=== PATIENT | male | born 1970 | race Caucasian/White ===

== ENCOUNTER 2020-12-26 18:12 | Observation (INO) ==
[2020-12-26 18:35] LABS: Basophils # 0.1 10*3/uL (0.0-0.2); Basophils % 0.6 % (0.0-0.8); Eosinophils # 0.5 10*3/uL (0.0-0.87); Eosinophils % 4.6 % (0.00-10.9); Hematocrit 45.4 VOL% (42.0-52.0); Hemoglobin 14.9 GM/DL (14.0-18.0); Immature Granulocytes % 0.3 %; Immature Granulocytes Absolute 0.03 #; Lymphocytes # 1.6 10*3/uL (1.4-4.0); Lymphocytes % 15.2 % (21.2-54.2); Mean Corpuscular HGB Conc 32.8 GM/DL (32-36); Mean Corpuscular Volume 87.8 FL (87-102); Mean Platelet Volume 8.7 FL (9.6-12.0); Monocytes % 10.9 % (1.7-12.7); Neutrophils % 68.4 % (38.7-73.9); Platelet Count 252 T/CUMM (130-400); Red Blood Count 5.17 MC/CUMM (3.8-5.5); White Blood Count 10.8 T/CUMM (4-12)
[2020-12-26 18:49] LABS: PT Patient Result 10.6 SECS (9.8-11.9); Partial Thromboplastin Time 31.6 SECS (23.9-33.8)
[2020-12-26 19:03] LABS: Bilirubin,Total 1.1 MG/DL (0.2-1.0); Calcium 8.9 MG/DL (8.5-10.1); Total Protein 7.3 G/DL (6.4-8.2)
[2020-12-26 19:04] LABS: Osmolality,Calculated 268.1 MOS/KG (273-304)
[2020-12-26] MEDS ORDERED: ALUM/MAG/SIMETH/LIDO VISC 1:1 30 ML BOTTLE PO STA (19:31)
[2020-12-26] MEDS ORDERED: PANTOPRAZOLE 40 MG VIAL IV STA (19:31)
[2020-12-26] MEDS ORDERED: ONDANSETRON 4 MG/2 ML VIAL IV STA (19:31)
[2020-12-26] MEDS ORDERED: MORPHINE 4 MG/1 ML VIAL IV STA (19:31)
[2020-12-26] MEDS ORDERED: NITROGLYCERIN 2% OINT 1 INCH/GM PACK TOP STA (19:31)
[2020-12-26] MEDS ORDERED: ENOXAPARIN 100 MG/ML SYRINGE SUBCUT STA (19:31)
[2020-12-26] MEDS ORDERED: ASPIRIN 325 MG TABLET PO STA (19:31)
[2020-12-26 22:07] VITALS: BP 132/83
[2020-12-26] MEDS: NITROGLYCERIN 2% OINT 1 INCH/GM PACK TOP SCH (23:10)
[2020-12-26] MEDS ORDERED: SODIUM CHLORIDE 0.9% 1,000 ML IV SCH (23:20)
[2020-12-26] MEDS ORDERED: ONDANSETRON 4 MG/2 ML VIAL IV PRN (23:20)
[2020-12-26] MEDS ORDERED: MORPHINE 4 MG/1 ML VIAL IV PRN (23:20)
[2020-12-26] MEDS ORDERED: ENOXAPARIN 40 MG/0.4 ML SYRINGE SUBCUT SCH (23:20)
[2020-12-26] MEDS: DOCUSATE SODIUM 100 MG CAPSULE PO SCH (23:38)
[2020-12-26] MEDS: ACETAMINOPHEN 325 MG TABLET PO PRN (23:52)
[2020-12-27 00:30] LABS: Troponin I < 0.015 NG/ML (0.00-0.045)
[2020-12-27 03:18] LABS: Basophils # 0.1 10*3/uL (0.0-0.2); Basophils % 0.9 % (0.0-0.8); Eosinophils # 0.7 10*3/uL (0.0-0.87); Eosinophils % 7.1 % (0.00-10.9); Hematocrit 42.8 VOL% (42.0-52.0); Immature Granulocytes % 0.4 %; Immature Granulocytes Absolute 0.04 #; Lymphocytes # 1.9 10*3/uL (1.4-4.0); Lymphocytes % 20.1 % (21.2-54.2); Mean Corpuscular HGB Conc 32.7 GM/DL (32-36); Mean Corpuscular Volume 88.1 FL (87-102); Mean Platelet Volume 8.8 FL (9.6-12.0); Monocytes % 12.8 % (1.7-12.7); Neutrophils % 58.7 % (38.7-73.9); Platelet Count 225 T/CUMM (130-400); Red Blood Count 4.86 MC/CUMM (3.8-5.5); White Blood Count 9.2 T/CUMM (4-12)
[2020-12-27 03:33] LABS: Albumin 3.4 G/DL (3.4-5.0); Bilirubin,Total 1.1 MG/DL (0.2-1.0); Calcium 8.4 MG/DL (8.5-10.1); Osmolality,Calculated 272.7 MOS/KG (273-304); Potassium 3.7 MMOL/L (3.5-5.1); Risk Ratio 1.71; Total Protein 6.8 G/DL (6.4-8.2); VLDL CHOLESTEROL 16.6 MG/DL
[2020-12-27] MEDS: NITROGLYCERIN 2% OINT 1 INCH/GM PACK TOP SCH ×2 (06:21→11:26)
[2020-12-27] MEDS: ACETAMINOPHEN 325 MG TABLET PO PRN (06:22)
[2020-12-27] MEDS ORDERED: diphenhydrAMINE CAP 50 MG CAPSULE PO ONE (08:11)
[2020-12-27] MEDS ORDERED: DIAZEPAM 5 MG TABLET PO ONE (08:11)
[2020-12-27] MEDS ORDERED: VERAPAMIL 5 MG/2 ML VIAL ONE (08:13)
[2020-12-27] MEDS ORDERED: HEPARIN/NACL 0.9% 2 UNITS/ML 2,000 UNIT/1,000 ML BAG IV ONE (08:13)
[2020-12-27] MEDS ORDERED: NITROGLYCERIN DRIP 50 MG/250 ML BOTTLE IV ONE ×2 (08:13→08:24)
[2020-12-27] MEDS ORDERED: LIDOCAINE 1% 20 ML VIAL ONE (08:13)
[2020-12-27] MEDS ORDERED: MIDAZOLAM 2 MG/2 ML VIAL ONE ×2 (08:36→08:52)
[2020-12-27] MEDS ORDERED: fentaNYL 100 MCG/2 ML VIAL ONE (08:37)
[2020-12-27] MEDS ORDERED: HEPARIN 5,000 UNIT/1 ML VIAL ONE (08:50)
[2020-12-27] MEDS ORDERED: NIACIN 500 MG TABLET PO SCH (09:00)
[2020-12-27] MEDS ORDERED: ASPIRIN EC 325 MG TABLET PO SCH (09:00)
[2020-12-27] MEDS ORDERED: PANTOPRAZOLE 40 MG VIAL IV SCH (09:00)
[2020-12-27] MEDS: DOCUSATE SODIUM 100 MG CAPSULE PO SCH (11:27)
[2020-12-27] MEDS ORDERED: ENOXAPARIN 40 MG/0.4 ML SYRINGE SUBCUT SCH (20:00)
== END 2020-12-27 14:28 | disposition home or self-care (01) ==
LOC: N.EDINP 18:12 → N.ED 18:12 → N.CC 21:10
PROVIDERS: ADMIT Family Medicine; ATTEND Family Medicine
PROC: CLCCHCL (ICD-10-PCS; 2020-12-27 08:45)